=== PATIENT | male | born 1965 | race Caucasian/White ===

== ENCOUNTER → 2017-12-10 | Outpatient (CLI) | payer OTHER | END | disposition home or self-care (01) | LOC: PCVCIMAG 15:41 | DX: I10 Essential (primary) hypertension (principal); I34.0 Nonrheumatic mitral (valve) insufficiency; E78.5 Hyperlipidemia, unspecified | CPT/HCPCS: 76770; 80061; 93306; 93975 ==

== ENCOUNTER → 2019-02-10 | Outpatient (CLI) | payer OTHER ==
--- NOTE | 2019-02-11 12:17 | PCVCIMAG ---
APPROVED REPORT Study performed: 02/10/2019 16:24:52 EXAM: Comprehensive 2D, Doppler, and color-flow Echocardiogram Patient Location: Echo lab Status: routine BSA: 2.22 HR: 62 bpmBP: 120/84 mmHg Rhythm: NSR Other Information Study Quality: Adequate Risk Factors: Cardiac Risk Factors: HTN, Hyperlipidemia Indications dilated ascending aorta 2D Dimensions IVSd: 11.05 (7-11mm) LVDd: 43.84 mm PWd: 11.33 (7-11mm)Ascending Ao: 39.71 (22-36mm) LVDs: 28.58 (25-40mm) Left Atrium: 29.54 (27-40mm) Aortic Root: 38.21 mm LV Single Plane 4CH: 52.29 % LV Single Plane 2CH: 55.93 % Biplane EF: 55.4 % Volumes Left Atrial Volume (Systole) Single Plane 4CH: 42.89 mLSingle Plane 2CH: 52.11 mL LA ESV Index: 23.00 mL/m2 Aortic Valve AoV Peak Xiang.: 1.04 m/s AO Peak Gr.: 4.31 mmHgLVOT Max P.93 mmHg LVOT Max V: 0.86 m/s Mitral Valve E/A Ratio: 1.4 MV Decel. Time: 249.55 ms MV E Max Xiang.: 0.49 m/s MV A Xiang.: 0.35 m/s IVRT: 101.50 ms Pulmonary Valve PV Peak Xiang.: 0.81 m/sPV Peak Gr.: 2.63 mmHg Pulmonary Vein P Vein S: 0.28 m/sP Vein A: 0.29 m/s P Vein D: 0.39 m/sP Vein A Dur.: 141.9 msec P Vein S/D Ratio: 0.72 Tricuspid Valve TR Peak Xiang.: 2.51 m/s TR Peak Gr.: 25.26 mmHg TV Vmax: 0.43 m/s Left Ventricle The left ventricle is normal size. There is normal LV segmental wall motion. There is normal left ventricular wall thickness. Left ventricular systolic function is normal. The left ventricular ejection fraction is within the normal range. LVEF is 50-55%. Grade II - pseudonormal filling dynamics. Right Ventricle The right ventricle is normal size. The right ventricular systolic function is normal. Atria The left atrium size is normal. The right atrium size is normal. Aortic Valve The aortic valve is normal in structure. No aortic regurgitation is present. There is no aortic valvular stenosis. Mitral Valve The mitral valve is normal in structure. Trace mitral regurgitation. No evidence of mitral valve stenosis. Tricuspid Valve The tricuspid valve is normal in structure. Trace tricuspid regurgitation with PAP of 32 mmHg. Pulmonic Valve The pulmonary valve is normal in structure. There is no pulmonic valvular regurgitation. Great Vessels The aortic root is borderline dilated to 3.8 cm. The ascending aorta is mildly dilated to 4.0 cm. IVC is normal in size and collapses >50% with inspiration. Pericardium There is no pericardial effusion. There is no pleural effusion. <Conclusion> The left ventricle is normal size. LVEF is 50-55%. The aortic valve is normal in structure. The mitral valve is normal in structure. Trace mitral regurgitation. The tricuspid valve is normal in structure. Trace tricuspid regurgitation with PAP of 32 mmHg. The pulmonary valve is normal in structure. There is no pericardial effusion. The ascending aorta is mildly dilated to 4.0 cm.
== END | disposition home or self-care (01) ==
LOC: PCVCIMAG 16:00
PROVIDERS: ATTEND Internal Medicine
DX: I71.2 Thoracic aortic aneurysm, without rupture (principal); E78.5 Hyperlipidemia, unspecified; I10 Essential (primary) hypertension
CPT/HCPCS: 93306